=== PATIENT | female | born 1940 | race Caucasian/White ===

== ENCOUNTER 2023-05-11 17:07 | Observation (INO) | payer OTHER, SELFPAY ==
[2023-05-11] VITALS (11 sets, daily range): BP systolic 127–157; BP diastolic 50–109; PULSE 67–88; RESP 17–34; TEMP 36.6; O2SAT 94–100
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
--- NOTE | 2023-05-11 17:35 | ECG_ITS ---
Measurements Intervals [place] Rate: 85 P: 56 OK: 161 QRS: 47 QRSD: 101 T: 102 QT: 397 QTc: 473 Interpretive Statements SINUS RHYTHM BORDERLINE R WAVE PROGRESSION, ANTERIOR LEADS ST-T WAVE ABNORMALITY IN ANTEROLAT/HIGH LAT LEADS- CONSIDER ISCHEMIA ABNORMAL ECG NO PREVIOUS ECG AVAILABLE FOR COMPARISON Electronically Signed On 05-11-2023 18:44:39 [employer] by Chuck Moon D.O.
[2023-05-11 18:08] LABS: Glucose Point of Care 36 mg/dl (65-105)
--- NOTE | 2023-05-11 18:09 | PC.NURSE ---
c/o return of blurred vision. FSBS 36. 1 amp D50 given IVP.
[2023-05-11 18:10] LABS: Basophils Percent Auto 0.2 % (0.2-1.2); Eosinophils Percent Auto 0.4 % (0-4.4); Hematocrit 32.3 % (37.0-47.0); Hemoglobin 9.9 g/dL (12.0-15.0); Immature Granulocyte Absolute 0.08 K/mm3 (0.00-0.031); Immature Granulocyte Percent A 0.8 % (0-0.5); Lymphocytes Absolute Auto 1.62 K/mm3 (0.9-3.2); Lymphocytes Percent Auto 16.1 % (18.3-44.2); Mean Corpuscular HGB Conc 30.7 g/dl (32-36); Mean Corpuscular Hemoglobin 27.1 pg (26-34); Mean Corpuscular Volume 88.5 fl (80-100); Mean Platelet Volume 10.8 fl (7.4-10.4); Monocytes Absolute Auto 0.9 K/mm3 (0.1-0.6); Monocytes Percent Auto 8.9 % (2.6-8.5); Neutrophils Absolute Auto 7.4 K/mm3 (1.3-6.7); Neutrophils Percent Auto 73.6 % (45.5-73.1); Platelet Count Result 314 k/mm3 (150-375); Red Blood Count 3.65 M/mm3 (4.2-5.4); Red Cell Distribution Width 14.9 % (11.5-14.5); White Blood Count 10.1 K/mm3 (4.5-10.0)
[2023-05-11] MEDS: DEXTROSE 50% 25 GM/50 ML SYRINGE (18:17)
[2023-05-11 18:20] LABS: Ethanol < 10 mg/dL (<10)
[2023-05-11 18:28] LABS: Alanine Aminotransferase 26 U/L (6-35); Albumin Level 3.6 g/dL (3.5-5.1); Alkaline Phosphatase 85 U/L (38-126); Anion Gap 8 mmol/L (8-16); Aspartate Amino Transferase 42 U/L (14-36); Bilirubin,Total 0.5 mg/dL (0.2-1.3); Blood Urea Nitrogen 19 mg/dL (7-17); Calcium 8.7 mg/dL (8.4-10.2); Carbon Dioxide 23 mmol/L (22-30); Chloride 107 mmol/L (98-107); Estimated CRCL calculation 40 ml/min; Estimated Glomerular Filt Rate > 60; Glucose 39 mg/dL (65-110); Potassium 3.8 mmol/L (3.4-5.0); Sodium 138 mmol/L (137-145)
[2023-05-11 18:32] LABS: Troponin I 0.019 ng/mL (0.000-0.034)
[2023-05-11 18:39] LABS: Appearance Urine Clear (Clear); Bilirubin Urine Negative (Negative); Blood Urine Negative (Negative); Color Urine Yellow (Yellow); Glucose Urine UA 1+ mg/dL (Negative); Ketones Urine Trace mg/dL (Negative); Leukocyte Esterase Ur Negative LEU/UL (Negative); Nitrate Urine Negative (Negative); Protein Urine Negative (Negative); Specific Grav Ur 1.018 (1.001-1.035); Urobilinogen Urine 0.2 mg/dL (<2.0)
[2023-05-11 18:39] LABS: INR 0.9; Prothrombin Time 12.6 Seconds (11.1-14.7)
[2023-05-11 18:40] LABS: Partial Thromboplastin Time 24.3 SECONDS (22.3-36.8)
[2023-05-11 18:42] LABS: Add Urine Microscopic? YES
[2023-05-11 18:54] LABS: Amphetamine Screen Urine Negative (Negative); Barbiturate Screen Urine Negative (Negative); Benzodiazepines Screen Urine Negative (Negative); Cannabinoid Screen Urine Negative (Negative); Cocaine Screen Urine Negative (Negative); Methadone Screen Urine Negative (Negative); Opiate Screen Urine Negative (Negative); Phencyclidine Screen Urine Negative (Negative)
[2023-05-11 18:58] LABS: Glucose Point of Care 130 mg/dl (65-105)
[2023-05-11] MEDS: OCTREOTIDE ACETATE 50 MCG/ML VIAL SUB-Q ×2 (19:12→22:14)
[2023-05-11 20:55] LABS: Glucose Point of Care 38 mg/dl (65-105)
--- NOTE | 2023-05-11 21:00 | ECG_ITS ---
Measurements Intervals [place] Rate: 70 P: 58 [place]: 177 QRS: 44 QRSD: 102 T: 94 QT: 438 QTc: 473 Interpretive Statements SINUS RHYTHM BORDERLINE R WAVE PROGRESSION, ANTERIOR LEADS ST-T WAVE ABNORMALITY IN HIGH LATERAL LEADS- CONSIDER ISCHEMIA ABNORMAL ECG COMPARED TO ECG 05/11/2023 17:41:07 NO SIGNIFICANT CHANGES Electronically Signed On 05-12-2023 6:45:03 MORTGAGE CLOSER by Chuck Moon D.O.
[2023-05-11] MEDS: DEXTROSE 50% 25 GM/50 ML SYRINGE IV PUSH (21:10)
[2023-05-11 22:15] LABS: Glucose Point of Care 181 mg/dl (65-105)
[2023-05-12] VITALS (9 sets, daily range): BP systolic 127–148; BP diastolic 47–65; PULSE 61–97; RESP 16–24; TEMP 36.3–36.8; O2SAT 95–97; BMI 19.5; BMI 20.3
[2023-05-12 00:05] LABS: Glucose Point of Care 186 mg/dl (65-105)
--- NOTE | 2023-05-12 02:38 | ADMGEN ---
This patient, Tessy Bcekman, was admitted to IMU Room 204-01. Patient/family oriented to hospital policies and general routines including ID bracelet, bed and alarms, visiting hours, pain management, procedures, bathroom and other care routines, personal items, smoking policy, room service/diet, and visiting hours. Information on how to activate the Rapid Response Team has been discussed. Patient/Family are encouraged to report perceived risks to care and to ask questions if they do not understand what they are told or what they should do.
[2023-05-12 03:05] LABS: Troponin I 0.036 ng/mL (0.000-0.034)
[2023-05-12] MEDS: ASPIRIN 81 MG CHEWABLE TABLET 324 MG PO (05:26)
[2023-05-12 06:11] LABS: Glucose Point of Care 169 mg/dl (65-105)
[2023-05-12 08:35] LABS: Glucose Point of Care 82 mg/dl (65-105)
[2023-05-12 12:37] LABS: Glucose Point of Care 190 mg/dl (65-105)
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
[2023-05-12 15:00] LABS: Troponin I 0.024 ng/mL (0.000-0.034)
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
== END 2023-05-12 16:40 | disposition home or self-care (01) ==
LOC: ANHED 19:07 → ANHIMU 05-12 01:25
PROVIDERS: Internal Medicine; Admitting Provider Internal Medicine; Emergency Provider Student in an Organized Health Care Education/Training Program; PCP Family Medicine; Visit Provider Internal Medicine
DX: E16.2 Hypoglycemia, unspecified (principal); V89.2XXA Person injured in unspecified motor-vehicle accident, traffic, initial encounter; R79.89 Other specified abnormal findings of blood chemistry; I65.23 Occlusion and stenosis of bilateral carotid arteries; J81.1 Chronic pulmonary edema; I11.0 Hypertensive heart disease with heart failure; R91.8 Other nonspecific abnormal finding of lung field; I25.10 Atherosclerotic heart disease of native coronary artery without angina pectoris; D50.0 Iron deficiency anemia secondary to blood loss (chronic); E03.9 Hypothyroidism, unspecified; E78.5 Hyperlipidemia, unspecified; E63.8 Other specified nutritional deficiencies; Z86.16 Personal history of COVID-19; I25.2 Old myocardial infarction; Z79.82 Long term (current) use of aspirin; Z79.02 Long term (current) use of antithrombotics/antiplatelets; Z79.4 Long term (current) use of insulin; Z79.84 Long term (current) use of oral hypoglycemic drugs; Z79.899 Other long term (current) drug therapy
CPT/HCPCS: 36415; 70496; 70498; 71046; 71260; 74177; 80053; 80307; 81001; 82948; 84484; 85025; 85610; 85730; 93005; 96372; 96374; 96376; 99285; A9270; G0378; J2354; Q9967

== ENCOUNTER → 2024-11-11 12:58 | Outpatient (CLI) | payer OTHER, SELFPAY ==
--- NOTE | ~2024-11-11 | XR_ITS ---
HISTORY: M54.6 - Pain in thoracic spine/fall 8 days ago COMPARISON: 05/11/2023 TECHNIQUE: Multiple views of the thoracic spine were performed. FINDINGS: Compression of the superior endplate of T12 is identified for detection of acute is limited on plain film evaluation. This vertebral body was not compressed on 05/11/2023. Diffuse bony demineralization. Moderate kyphosis, demonstrating progression since previous examination dated 05/11/2023 IMPRESSION: Diffuse bony demineralization with compression of the superior endplate of T12, an interval change fr om 05/11/2023 examination for which cross-sectional imaging (noncontrast enhanced CT or MRI) is recomm ended for further evaluation. Reviewed, dictated and finalized at location A. IMPRESSION: Diffuse bony demineralization with compression of the superior endplate of T12, an interval change from 05/11/2023 examination for which cross-sectional imagin g (noncontrast enhanced CT or MRI) is recommended for further evaluation.
--- NOTE | ~2024-11-11 | XR_ITS ---
HISTORY: M54.50 - Low back pain, unspecified/fall 8 days ago COMPARISON: 05/11/2023 (CT examination of the abdomen and pelvis) TECHNIQUE: 4 view lumbar spine. FINDINGS: There are 5 non-rib bearing lumbar vertebral bodies. Diffuse bony demineralization is identified. 9 mm of anterolisthesis of L4 onto L5 is identified. This is an interval change from 05/11/2023 when this measured only 4 mm. Remaining vertebral bodies otherwise are normally aligned. Compression of the superior endplate of L4 is identified, an interval change from 05/11/2023. Significant facet arthropathy is also detected, within the entirety of the lumbar spine. Paraspinal soft tissues demonstrate densely calcified atherosclerotic disease within the abdominal ao rta as well as multiple dependent layering stones within the gallbladder. IMPRESSION: Unremarkable lumbar spine series. Compression of the superior endplate of L4, an interval change from 05/11/2023. Please correlate this finding with the patient's point of maximal tenderness to further evaluate its acuity. If patient is clinically able, cross-sectional imaging (CT or MRI) is recommended for further evaluat ion. Reviewed, dictated and finalized at location A. IMPRESSION: Unremarkable lumbar spine series. Compression of the superior endplate of L4, an interval change from 05/11/2023. Please correlate this finding with the patient's point of maximal tenderness to further evaluate its acuity. If patient is clinically able, cross-sectional imaging (CT or MRI) is recommend ed for further evaluation.
--- OUTSIDE RECORDS SUMMARY | 2024-11-11 13:04 | XMS_ITS | Encounter Summary ---
Author Organization [facility] Address [address] [place] [address] Care Team Providers Care Forest Science Professor Name Role Phone Roxane Meyers MD Primary Care Provider [phone] Daphne Xavier PharmD Unavailable [phone] Nathan Diaz MD Primary Care Provider [phone] Encounter Details Date Type Department Care Team (Late st Contact Info) Description 02/25/2022 Prep for Procedure [facility] [address] [place] [address] Tai Ram DO [address] [place] [address] Social History Tobacco Use Types Packs/Day Years Used Date Smoking Tobacco: Never Smokeless Tobacco: Never Alcohol Use Standard Drinks/Week Comments Yes 0 (1 standard drink = 0.6 oz pur e alcohol) very rarely. AUDIT-C Answer Date Recorded Frequency of Alcohol Consumption Not on file 08/21/2020 Q2: How many drinks containi ng alcohol do you have on a typical day when you are drinking? 1 or 2 08/21/2020 Frequency of Binge Drinking Not on file 08/2020 PHQ-2 Answer Date Recorded PHQ-2 Score - If the patient scores above 3, please move on to questions 3-9 0 08/25/2021 Comments No Sex and Gender Information Value Date Recorded Sex Assigned at Not on file Legal Sex Female 6:32 PM CDT Gender Identity Not on file Sexual Orientation Not on file COVID-19 Exposure Response Date Recorded In the last 10 days, have yo u been in contact with someone who was confirmed or suspected to have Coronavirus/COVID-19? No / Unsure 02/27/2022 9:51 AM WAREHOUSE HANDLER documented as of this encounter Functional Status * Calculated C-SSRS Risk Score (Lifetime/Recent) Answer Date of Assessment Author Status No Risk Indicated 02/27/2022 9:47 AM WAREHOUSE HANDLER Louisa Yanez RN Active * Ward Suicide Severity Rating Scale (Screener/Recent Self-Report) Question Answer Date of Assessment Author Status 1. Wish to be (Past 1 Month) No 02/27/2022 9:47 AM WAREHOUSE HANDLER Louisa Yanez RN Active 2. Non-Specific Active Suicidal Thoughts (Past 1 Month) No 02/27/2022 9:47 AM WAREHOUSE HANDLER Louisa Yanez RN Active 6. Suicidal Behavior (Lifetime) No 02/27/2022 9:47 AM WAREHOUSE HANDLER Louisa Yanez RN Active documented as of this encounter Plan of Treatment Not on file documented as of this encounter Results * XR CHEST PA+LAT (02/26/2022 9:38 AM WAREHOUSE HANDLER) Anatomical Region Laterality Modality Chest Radiographic Mendy ging 02/26/2022 9:55 AM WAREHOUSE HANDLER Impressions 02/26/2022 9:58 AM WAREHOUSE HANDLER IMPRESSION: 1. No evidence of acute cardiopulmonary disease. 2. No evidence of pleural effusion or pneumothorax. No CHF. Mild COPD with scattered interstitial fibrosis. 3. Atherosclerotic aorta. Mild cardiomegaly. Degenerative change in thoracic spine. Osteopenia. Kyphosis.. 4. Stable appearance to numerous gallbladder calculi. Also noted on CT of 02/01/2022. Ordered By: TAI RAM Interpreted By: Mago Haq, 02/26/2022 9:55 AM Narrative 02/26/2022 9:58 AM WAREHOUSE HANDLER IMAGING STUDIES: XR CHEST PA+LAT DATE: 02/26/2022 9:30 AM CLINICAL HISTORY: pre-op testing, HTN . COMPARISON: 01/07/2018 Procedure Note Yogesh Haq MD - 02/26/2022 IMAGING STUDIES: XR CHEST PA+LAT DATE: 02/26/2022 9:30 AM CLINICAL HISTORY: pre-op testing, HTN . COMPARISON: 01/07/2018 IMPRESSION: 1. No evidence of acute cardiopulmonary disease. 2. No evidence of pleural effusion or pneumothorax. No CHF. Mild COPDwith scattered interstitial fibrosis. 3. Atherosclerotic aorta. Mild cardiomegaly. Degenerative change inthoracic spine. Osteopenia. Kyphosis.. 4. Stable appearance to numerous gallbladder calculi. Also noted on CT of02/01/2022. Ordered By: TAI RAM Interpreted By: Mago Haq, 02/26/2022 9:55 AM us Tai Ram DO GENERAL IMAGING Final Result * (ABNORMAL) CBC W/DIFF AUTOMATED (02/26/2022 9:19 AM WAREHOUSE HANDLER) WBC 8.5 4.4 - 11.0 x10'3/uL 02/26/2022 10:08 AM [facility] RBC 4.29(L) 4.50 - 5.10 x10'6/uL 02/26/2022 10:08 AM [facility] HGB 12.5 12.3 - 15.3 G/DL 02/26/2022 10:08 AM [facility] HCT 38.9 35.9 - 44.6 % 02/26/2022 10:08 AM [facility] MCV 90.7 80.0 - 96.0 FL 02/26/2022 10:08 AM [facility] MCH 29.1 25.3 - 30.9 PG 02/26/2022 10:08 AM [facility] MCHC 32.1 31.0 - 34.1 G/DL 02/26/2022 10:08 AM [facility] RDW 14.5 12.4 - 15.1 % 02/26/2022 10:08 AM [facility] PLT 348 151 - 353 x10'3/uL 02/26/2022 10:08 AM [facility] MPV 10.8 9.6 - 12.0 FL 02/26/2022 10:08 AM [facility] RBC MORPHOLOGY NORMAL 02/26/2022 10:08 AM [facility] PLT MORPH. NORMAL 02/26/2022 10:08 AM [facility] WBC MORPHOLOGY NORMAL 02/26/2022 10:08 AM [facility] LYMPHOCYTES % 26.3 15.8 - 45.0 % 02/26/2022 10:08 AM [facility] NEUTROPHILS % 61.1 42.1 - 71.9 % 02/26/2022 10:08 AM [facility] MONOCYTES % 9.3 5.7 - 12.5 % 02/26/2022 10:08 AM [facility] EOSINOPHILS 2.3 0.0 - 5.6 % 02/26/2022 10:08 AM [facility] BASOPHILS 0.4 0.0 - 1.3 % 02/26/2022 10:08 AM [facility] ABS. NEUTROPHILS 5.22 1.40 - 6.00 x10'3/uL 02/26/2022 10:08 AM [facility] IMMATURE GRANS % 0.6(H) 0.0 - 0.5 % 02/26/2022 10:08 AM [facility] ABS. LYMPHOCYTES 2.24 0.80 - 4.70 x10'3/uL 02/26/2022 10:08 AM [facility] 02/26/2022 9:19 AM WAREHOUSE HANDLER Tai Ram DO LABORATORY Final Result [facility] [address] [place] [address], [place] [phone] documented in this encounter Visit Diagnoses Diagnosis Pre-op testing- Primary Preoperative examination, unspecified Hypertension, benign Essential hypertension, benign Pre-op testing Preoperative examination, unspecified Hypertension, benign Essential hypertension, benign documented in this encounter Additional Health Concerns Assessment Noted Time PHQ-9 Depression Total Score: 2 08/26/19 22 10:21 AM CDT documented as of this encounter Care Teams Forest Science Professor Relationship Specialty Start Date End Date Roxane Meyers MD PCP - General INTERNAL MEDICINE 01/26/18 07/05/22 Nathna Diaz MD [address] [place] [address] [address] [place] [address] PCP - General FAMILY PRACTICE 07/06/22 Daphne Xavier, PharmD [address] [place] [address] Telegraph Repeater Installer (Ambulatory) Pharmacist 11/18/2106/18 documented as of this encounter
--- OUTSIDE RECORDS SUMMARY | 2024-11-11 13:04 | XMS_ITS | Continuity of Care Document ---
Author Organization [facility] Address [address] [place] [address] Phone Care Team Providers Care Sisal Operator Name Role Phone Matt RHOADES, John Unavailable Unavailable Advance Directives Directive Yes / No Effective Date File Name No Information Encounters Encounter Description Practice Location Reason(s) For Visit Diagnoses Date Provider Providers Copied on Encounter [facility] , [address], [place], [id number], [place] tel:[phone] [facility] No Information Matt Lopez. [address], [address], [place], [id number], [place]. tel:[phone] Family History Family Member Type Diagnosis Age At Onset No Information Payers Payer name Insurance type Covered republican ID Authoriza tion(s) No Information Social History Type Description Quantity Date Captured Comments Sex Female Smoking Status No Information Chief Complaint And Reason For Visit No Information Reason For Referral Reason For Referral No Information History Of Present Illness Encounter Date Complaint History Of Prese nt Illness No Information Functional Status Date Functional Assessmen t No Information Instructions Date Instruction Additional Infor mation No Information Assessments Type Assessment Date No Information Patient Care Teams Name Effective Dates (start - stop) Status Members No Information
--- OUTSIDE RECORDS SUMMARY | 2024-11-11 13:04 | XMS_ITS | Continuity of Care Document ---
Author Organization [facility] Address [address] [place] [address] Phone Care Team Providers Care Art Handler Name Role Phone Eliel Jiang Unavailable Unavailable Procedures Procedure Date Post-op Follow-up Visit Post-op Follow-up Visit Laser Surgery Of Eye Office/outpatient Visit, Est Visual Field Examination(s) Eye Exam & Treatment Refraction Office/outpatient Visit, Est Office/outpatient Visit, Est Post-op Follow-up Visit Laser Surgery Of Eye Office/outpatient Visit, Est Fundus Photography W/ Report Visual Field Examination(s) Office/outpatient Visit, Est Office/outpatient Visit, Est Office/outpatient Visit, Est Optic Nerve Head Eval Visual Field Examination-Professional Ju -2006 Visual Field Examination(s) Office/outpatient Visit, Est Advance Directives Directive Yes / No Effective Date File Name No Information Encounters Encounter Description Practice Location Reason(s) For Visit Diagnoses Date Provider Providers Copied on Encounter [facility], [address], [place], [place], [id number], [place] tel:[phone] [facility] No Information 1 0 Apolinar Julian. [address] [facility] [address] , [address], [place], [place], [facility], [place]. tel:[phone] [facility], [address] [place] [address] [address], [place], [place], [id number], [place] tel:[phone] [facility] [place] No Information Oct-1 8-201 0 Apolinar Edkeira. [address] [facility] , [address], [place], [place], [facility], [place]. tel:[phone] [facility], [address] [place] [address] [address], [place], [place], [id number], [place] tel:[phone] [facility] No Information Oct-1 2-201 0 Apolinar Julian. [address] [facility] , [address], [place], [place], [facility], [place]. tel:[phone] Office/outpat ient Visit, Est [facility], [address] [place] [address] [address], [place], [place], [id number], [place] tel:[phone] [facility] No Information Sep-2 7-201 0 Apolinar Edkeira. [address] [facility] [address], [address], [place], [place], [facility], [place]. tel:[phone] [facility], [address] [place] [address] [address], [place], [place], [id number], [place] tel:[phone] [facility] No Information Sep-0 3-201 0 Apolinar Julian. [address] [facility] [address], [address], [place], [place], [facility], [place]. tel:[phone] Referring Provider: Eliel Gray, [facility] [address], [place], [place], [facility]. tel:[phone] [facility], [address] [place] [address] [address], [place], [place], [id number], [place] tel:[phone] [facility] No Information Apr-2 1-201 0 Apolinar Julian. [address] [facility] , [address], [place], [facility], [place]. tel:[phone] Office/outpat ient Visit, [facility], [address], [place], [place], [id number], [place] tel:[phone] [facility] No Information Dec-1 6-200 9 Apolinar Julian. [address] [place], [place] [address]ate Center , [address], [place], [place], [facility], [place]. tel:[phone] Office/outpat ient Visit, [facility], [address] [place] [address] [address], [place], [place], [id number], [place] tel:[phone] [facility] No Information Aug-0 3-200 9 Apolinar Julian. [address] [place], [place] [address]ate Center , [address], [place], [place], [facility], [place]. tel:[phone] [facility], [address], [place], [place], [id number], [place] tel:[phone] [facility] [place] No Information Mar-2 3-200 9 Apolinar Julian. [facility] , [address], [place], [facility], [place]. tel:[phone] [facility], [address] [place] [address] [address], [place], [place], [id number], [place] tel:[phone] [facility] No Information Mar-1 3-200 9 Apolinar Julian. [address] [place], [place] [address]ate Center , [address], [place], [place], [facility], [place]. tel:[phone] Referring Provider: Eliel Gray, [address] [place], [place] [address]ate Center [address], [place], [place], [facility]. tel:[phone] Office/outpat ient Visit, [facility], [address] [place] [address] [address], [place], [place], [id number], [place] tel:[phone] [facility] No Information 4[address] Apolinar Julian. [facility] , [address], [place], [facility], . tel:[phone] Referring Provider: Eliel Gray, Alyssa [facility] [address], [place], [facility]. tel:[phone] [facility], [address] [place] [address] [address], [place], [place], [id number], [place] tel:[phone] [facility] No Information 9 Apolinar Julian. [address] [place], [place] [address]ate Center , [address], [place], [facility], [place]. tel:[phone] Referring Provider: Eliel Gray, [address] [place], [place] [address]ate Center [address], [place], [facility]. tel:[phone] Office/outpat ient Visit, [facility], [address] [place] [address] [address], [place], [place], [id number], [place] tel:[phone] [facility] No Information 2200 8 Apolinar Julian. [address] [place], [place] [address]ate Center , [address], [place], [facility], . tel:[phone] Office/outpat ient Visit, [facility], [address] [place] [address] [address], [place], [place], [id number], [place] tel:[phone] [facility] [place] No Information 3-200 8 Apolinar Julian. [address] [place], [place] [address], [place], [facility], . tel:[phone] Office/outpat ient Visit, [facility], [address] [place] [address] [address], [place], [place], [id number], [place] tel:[phone] SEC [facility] No Information 8200 7 Apolinar Julian. [address] [place], [place] [address]ate [address], [address], [place], [facility], . tel:[phone] [facility], [address] [place] [address] [address], [place], [place], [id number], tel:[phone] [facility] No Information 200 7 Apolinar Julian. [facility] [address], [place], [facility], . tel:[phone] Referring Provider: Eliel Gray, [facility] [place] [address], [place], [facility]. tel:[phone] [facility], [address] [place] [address] [address], [place], [place], [id number], tel:[phone] [facility] No Information 200 7 Apolinar Julian. [address] [place] [address] [address], [place], [facility], [place]. tel:[phone] Referring Provider: Alyssa Cage [facility] [address], [place], [facility]. tel:[phone] Office/outpat ient Visit, [facility], [address] [place] [address] [address], [place], [place], [id number], tel:[phone] [facility] No Information 200 7 Apolinar Julian. [facility] [address], [address], [place], [facility], . tel:[phone] Family History Family Member Type Diagnosis Age At Onset No Information Payers Payer name Insurance type Covered green party ID Authoriza tion(s) No Information Social History [...]
--- OUTSIDE RECORDS SUMMARY | 2024-11-11 13:04 | XMS_ITS | Clinical Summary ---
Author Organization [facility] Address [address] [place] [id number] Care Team Providers Care Alcoholic Counselor Name Role Phone Nathan Diaz MD Primary Care Provider [phone] Allergies Active Allergy Reactions Criticality Noted Date Comments Cefaclor Hives,Rash,Itching High 08/01/2018 Cephalosporins Hives,Rash,Itching High 03/01/2017 Medications levothyroxine (SYNTHROID) 75 MCG tabletIndications:T hyroid [The details of the medication are not available because there are pending changes by a home health clinician.] 90 tablet 1 022 Active Additional Information Patient taking differently: 75 mcg Oral Every morning, Indications: Thyroid, Reported on 02/14/2024 atorvastatin (LIPITOR) 80 MG tabletIndications:H LD Take 1 tablet (80 mg total) by mouth nightly at bedtime. 30 tablet 023 Active nitroglycerin (NITROSTAT) 0.4 MG SL tabletIndications:C P Place 1 tablet (0.4 mg total) under the tongue every 5 (five) minutes as needed for Chest Pain. 30 tablet 023 Active metFORMIN (GLUCOPHAGE) 500 MG tabletIndications:D iabetes Mellitus Take 1 tablet (500 mg total) by mouth daily with breakfast. Indications: Diabetes 024 Active SEMGLEE, YFGN, 100 UNIT/ML Solution Pen-injectorIndicat ions:DM [The details of the medication are not available because there are pending changes by a home health clinician.] 3 mL 024 Active Additional Information Patient taking differently: 20 UnitsSubcutaneous Every evening, Indications: DM, Reported on 02/14/2024 potassium chloride CR (KLOR-CON M) 20 MEQ tabletIndications:s upplement Take 0.5 tablets (10 mEq total) by mouth daily. Indications: supplement 90 tablet Active vitamin D3, cholecalciferol, (VITAMIN D3) 25 mcg capsuleIndications: Vitamin D Deficiency Take 1 capsule (25 mcg total) by mouth daily. Indications: Vitamin D Deficiency Active clopidogrel (PLAVIX) 75 MG tabletIndications:b lood thinner Take 1 tablet (75 mg total) by mouth daily. Indications: blood thinner 90 tablet 1 Active HYDROcodone-acetami nophen (NORCO) 5-325 MG tabletIndications:A cute Pain < 7 Day Supply Take 1 tablet by mouth every 6 (six) hours as needed. Indications: Acute Pain < 7 Day Supply 20 tablet Active Additional Information Patient not taking.Reported on 02/14/2024 ondansetron (ZOFRAN) 4 MG tablet Take 1 tablet (4 mg total) by mouth every 8 (eight) hours as needed for Nausea. 20 tablet Active traMADol (ULTRAM) 50 MG tabletIndications:A cute Pain < 7 Day Supply Take 1 tablet (50 mg total) by mouth every 6 (six) hours as needed for Pain. Indications: Acute Pain < 7 Day Supply 10 tablet Active Additional Information Patient not taking.Reported on 02/14/2024 memantine (NAMENDA) 5 MG tabletIndications:M jayesh Impairment Take 1 tablet (5 mg total) by mouth nightly at bedtime. Indications: Memory Impairment Active acetaminophen CR (TYLENOL 8 HOUR) 650 MG Tab CR 8 hr tabletIndications:A rthritis, knee Take 1 tablet (650 mg total) by mouth every evening. Indications: Arthritis, knee Active Iron, Ferrous Sulfate, 325 (65 Fe) MG TabIndications:Iron Deficiency Take 1 tablet by mouth daily. Indications: Iron Deficiency Active FREESTYLE LITE test strip CHECK BLOOD SUGAR 2X/DAY Active carvedilol (COREG) 3.125 MG tabletIndications:C oronary Arteriosclerosis Take 1 tablet (3.125 mg total) by mouth 2 (two) times daily. Indications: Thickening and Hardening of Heart Arteries CALL FOR AN APPOINTMENT 60 tablet Active furosemide (LASIX) 20 MG tablet Take 1 tablet (20 mg total) by mouth daily. CALL TO MAKE AN APPOINTMENT 30 tablet Active aspirin EC ([facility] ASPIRIN LOW DOSE) 81 MG tablet Take 1 tablet (81 mg total) by mouth daily. CALL TO MAKE AN APPOINTMENT 30 tablet Active Active Problems Problem Noted Date Diagnosed Date Multiple falls 01/25/2024 Proximal humerus fracture 01/25/2024 Assessment & Plan (02/14/2024 5:58 PM CDT): Recommendation at this time is to gradually increase activities as tolerated. We'll see her back as needed. Assessment & Plan (01/25/2024 9:36 PM CDT): At this point in time, I would have her continue with activities as tolerated with her sling. We'll see her back in three weeks for repeat evaluation. We'll get an x-ray of her shoulder and elbow. Syncope 01/02/2024 Closed displaced fracture of lateral condyle of right humerus with routine healing, subsequent encounter 11/15/2023 Assessment & Plan (11/15/2023 12:21 PM CDT): Recommendation at this time, she doesn't really want formal physical therapy. States she has transportation issues. She's not having any numbness or tingling. We'll just continue with working on her range of motion on her own. We'll see her back as needed. Fall, initial encounter 10/09/2023 Closed displaced fracture of medial condyle of right humerus, initial encounter 10/07/2023 Assessment & Plan (10/07/2023 7:12 AM CDT): Recommendation at this time, we're going to get her set up for an x-ray next week. We'll see her back in three weeks with another x-ray. As long as the x-ray next week doesn't show any significant change in position or alignment, we'll continue with conservative treatment. Hip fracture, right ([facility]) 05/21/2023 Physical deconditioning 02/18/2023 STEMI (ST elevation myocardi al infarction) ([facility]) 02/10/2023 Closed fracture of olecranon process of right ul na 03/10/2022 Closed supracondylar fracture of humerus 022 Ulnar nerve entrapment at elbow 02/24/2022 Fracture of distal end of humerus 02/18/2022 Mild nonproliferative diabet ic retinopathy of both eyes without macular edema associated with type 2 diabetes mellitus ([facility]) 12/19/2020 GERD (gastroesophageal reflux disease) 0 Type 2 diabetes mellitus wit h both eyes affected by mild nonproliferative retinopathy without macular edema, with long-term current use of insulin ([facility]) 08/01/2018 Alopecia of scalp 02/28/2018 Hypothyroidism 11/24/2017 Knee pain, bilateral 08/30/2017 Claudication 05/31/2017 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 03/01/2017 Overview (02/28/2018): Annotation - [id number]: R ear hearing loss after Measles Hyperlipidemia 03/01/2017 Hypertension, benign 03/01/2017 Pain of hand 03/01/2017 Resolved Problems Problem Noted Date Diagnosed Date Resolved Date Care Management 12/09/2021 06/19/2022 Osteoporosis, postmenopausal 08/30/2017 02/28/2018 Encounters Date Type Department Care Team Description 08/15/2024 7:40 AM CDT - 08/15/2024 11:59 PM CDT Hospital Encounter [facility] [address] [place] [address] Nathan Diaz MD Discharge Disposition: Home or Self Care (Routine Discharge) 08/15/2024 Orders Only [facility] [address] [place] [address] Kamila Prieto APNP 08/15/2024 Travel from Last 3 Months Immunizations Immunization Administration Dates Next Due Fluad influenza vaccine, Ollie drivalent (aIIV4), Inactivated, adjuvanted, preservative free, 0.5 mL,IM use 12/29/2019 Fluzone (IIV3, Trivalent, 0. 5 ML Prefilled Syringe) 01/02/2024(Deferred: Patient/family declined - does not want at this time) Fluzone Adult - >Age 3 (Pref illed Syringe) 01/18/2020 Fluzone High Dose - >Age 65 (Prefilled Syringe) 01/20/2022,01/31/2019,01/31/2019,2017,02/07/2018,01/22/2017,01/11/2017,0 04/21/2016 Influenza (Generic) 01/18/2020,01/30/2013 Influenza Adult (Generic) 02/06/2021,07/2017,02/07/2018,2016,01/11/2017,04/21/2016 MODERNA COVID-19 (12+) MRNA, LNP-S, PF, 100 MCG/ 0.5 ML DOSE 07/26/2020,07/26/2020,06/28/2020,2020 Pneumococcal (Pneumovax 23) 02/19/2020, 4 Pneumococcal (Prevnar 13) 04/25/2018 Pneumovax 11/24/2013 Shingrix 08/26/2020 Td (Tenivac) preservative free 08/30/2018 Td, Adsorbed, Preservative F ree, Adult Use, Lf Unspecified 08/30/2018 Zoster (Zostavax) [address] Unt/0.65Ml 05/09/2013, Family History Medical History Relation Comments COPD Father Diabetes Mother Breast Cancer Neg Hx Relation Status Comments Father Mother Social History Tobacco Use Types Packs/Day Years Used Date Smoking Tobacco: Never Smokeless Tobacco: Never Tobacco Cessation:Counseling Given: No Comments:na Alcohol Use Standard Drinks/Week Comments Yes 0 (1 standard drink = 0.6 oz pur e alcohol) very rarely. OASIS D0700: Social Isolation Answer Da te Recorded Frequency of experiencing loneliness or isolatio n Never 02/22/2024 OASIS A1250: Transportation Answer Date Recorded Lack of Transportation (Medical) No 02/22/2024 Lack of Transportation (Non-Medical) No 02/22/2024 Patient Unable or Declines to Respond No 02/22/2024 OASIS B1300: Health Literacy Answer Kenny e Recorded Frequency of needing help to read materials from doctor or pharmacy Sometimes 02/22/2024 [facility] Utilities Answer Date Recorded In the past 12 months has th e Liz[place], gas, oil, or water [place] threatened to shut off services in your home? No 01/02/2024 Humiliation, Afraid, Rape, and Kick questionnair e Answer Date Recorded Within the last year, have y ou been afraid of your partner or ex-partner? No 01/02/2024 Within the last year, have y ou been humiliated or emotionally abused in other ways by your partner or ex-partner? No Within the last year, have y ou been kicked, hit, slapped, or otherwise physically hurt by your partner or ex-partner? No 01/02/2024 Within the last year, have y ou been raped or forced to have any kind of sexual activity by your partner or ex-partner? No 01/02/2024 AUDIT-C Answer Date Recorded Q1: How often do you have a drink containing alc ohol? Monthly or less 02/16/2023 Q2: How many drinks containi ng alcohol do you have on a typical day when you are drinking? 1 or 2 02/16/2023 Frequency of Binge Drinking Not on file 01/19 Overall Financial Resource Strain (CARDIA) Answe r Date Recorded How hard is it for you to pa y for the very basics like food, housing, medical care, and heating? Not very hard 01/02/2024 PHQ-2 Answer Date Recorded Patient Health Questionnaire-2 Score 0 10/06/2023 [facility] - Occupational Stress Questionnaire Answer Date Recorded Do you feel stress - tense, restless, nervous, or anxious, or unable to sleep at night because your mind is troubled all the time - these days? Rather much 02/16/2023 Hunger Vital Sign Answer Date Recorded Within the past 12 months, y ou worried that your food would run out before you got the money to buy more. Never true 01/02/20 24 Within the past 12 months, t he food you bought just didn't last and you didn't have money to get more. Never true 01/02/2024 PRAPARE - Transportation Answer Date Re corded In the past 12 months, has l ack of transportation kept you from medical appointments or from getting medications? No 12/18 In the past 12 months, has l ack of transportation kept you from meetings, work, or from getting things needed for daily living? No 01/02/2024 Housing Stability Vital Sign Answer Kenny e Recorded In the last 12 months, was t here a time when you were not able to pay the mortgage or rent on time? No 05/21/2023 In the last 12 months, how many places have you lived? 2 05/21/2023 In the last 12 months, was t here a time when you did not have a steady place to sleep or slept in a group home (including now)? No 05/21/2023 Housing Stability Vital Sign Answer Kenny e Recorded In the last 12 months, was t here a time when you were not able to pay the mortgage or rent on time? No 01/02/2024 In the past 12 months, how m any times have you moved where you were living? 1 01/02/2024 At any time in the past 12 m [facility], were you homeless or living in a group home (including now)? No 01/02/2024 Comments No Sex and Gender Information Value Date Recorded Sex Assigned at Not on file Legal Sex Female 6:32 PM CDT Gender Identity Not on file Sexual Orientation Not on file Last Filed Vital Signs Vital Sign Reading Time Taken Comments Blood Pressure 132/60 02/22/2024 9:55 AM [employer] Pulse 70 02/22/2024 9:55 AM [employer] Temperature 36.4 C (97.6 F) 02/14/2024 2:32 PM CDT Respiratory Rate 18 02/22/2024 9:55 AM [employer] Oxygen Saturation 94% 02/22/2024 9:55 AM [employer] Inhaled Oxygen Concentration - - Weight 43.3 kg (95 lb 6.4 oz) 02/14/2024 2:32 PM CDT Height 154.9 cm (5' 1) 02/14/2024 2:32 PM CDT Body Mass Index 18.03 02/14/2024 2:32 PM CDT Plan of Treatment Health Maintenance Due Date Last Done Comments ASCVD Statin 1940 Annual Medicare Wellness Visit 2006 RSV Immunization or 60+ Years (1 - 1-dose 75+ series) 01/04/2016 DTaP, Tdap and Td Vaccines (1 - Tdap) 08/31/2018 08/30/2018, 08/30/2018 Diabetes: Retinopathy Eye Exam 05/23/2020 05/23/2018 Zoster Vaccines (3 of 3) 10/21/2020 021, 05/09/2013, 05/09/2013 COVID-19 Vaccine ( season) 2023 03/01/2021, 07/26/2020, 07/26/2020, Additional history exists PHQ-2 ([facility] [place]) 04/19/2024 10/06/2023 Hemoglobin A1C 11/14/2024 08/15/2024, 12/18, 06/18/2023, Additional history exists Kidney Health Evaluation 08/15/2025 08/15/2024 Lipid Panel 08/15/2025 08/15/2024, 02/19, 02/10/2023, Additional history exists Pneumococcal Vaccine: 50+ Years Completed 02/19/2020, 04/25/2018, 11/24/2013, Additional history exists Dexa Scan (General) Completed 09/11/2021, 9 Meningococcal B Vaccine Aged Out No l onger eligible based on patient's age to complete this topic Meningococcal Vaccine Aged Out No wilton dalia eligible based on patient's age to complete this topic RSV Immunizations Under 20 Months Aged Out No longer eligible based on patient's age to complete this topic Goals Goal Patient Goal Type Associated Problems Recent Progress Patient-Stated? Author Family - family caregiver with be involved in care transitions and discharge planning Lifestyle No Socorro Holder, [employer] Implanted Type Area Seismic Prospecting Observer Helper Device Identifier Shelf Expiration Date Model / Serial / Lot Stem Femoral Collar Avenir Complete 3 Standard Hip Sterile Latex Free - [id number] Implanted:Qty: 1 on 05/21/2023 by Edward Rubio MD at [facility] Hip Components Right: Hip [employer] 12/19/2027 [id number] / / Shell Marlen Bipolar 42mm Od - [id number] Implanted:Qty: 1 on 05/21/2023 by Edward Rubio MD at [facility] Hip Components Right: Hip [employer] 01/28/2032 [id number] / / Liner Marlen Bipolar Hip 22 Id 42/43mm - [id number] Implanted:Qty: 1 on 05/21/2023 by Edward Rubio MD at [facility] Hip Components Right: Hip [employer] 10/16/2026 [id number] / / 3-Hole Distal Medial Extended Plate Implanted:Qty: 1 on 02/27/2022 by Jet Ram DO at [facility] Right: Arm Description:ITEM # [id number] 3.5 X 10mm L Screw Implanted:Qty: 1 on 02/27/2022 by Jet Ram DO at [facility] Right: Arm Description:ITEM # [id number] 3.5 X 18mm L Screw Implanted:Qty: 1 on 02/27/2022 by Jet Ram DO at [facility] Right: Arm Description:ITEM # [id number] 3.5 X 24mm Nl Screw Implanted:Qty: 2 on 02/27/2022 by Jet Ram DO at [facility] Right: Arm Description:ITEM # [id number] 3.5 X 22mm Nl Screw Implanted:Qty: 1 on 02/27/2022 by Jet aRm DO at [facility] Right: Arm Description:ITEM # [id number] 3.5 X 34mm L Screw Implanted:Qty: 1 on 02/27/2022 by Jet Ram DO at [facility] Arm Description:ITEM # [id number] 3.5 X 14mm L Screw Implanted:Qty: 2 on 02/27/2022 by Jet Ram DO at [facility] Right: Arm Description:ITEM # [id number] 3.5 X 36mm L Screw Implanted:Qty: 1 on 02/27/2022 by Jet Ram DO at [facility] Right: Arm Description:ITEM # [id number] Right 3-Hole Olecranon Plate Implanted:Qty: 1 on 02/27/2022 by Jet Ram DO at [facility] Right: Arm Description:ITEM # [id number] 3.5 X 20mm Nl Screw Implanted:Qty: 1 on 02/27/2022 by Jet Ram DO at [facility] Right: Arm Description:ITEM # [id number] 3.5 X 42mm L Screw Implanted:Qty: 1 on 02/27/2022 by Jet Ram DO at [facility] Right: Arm Description:ITEM # [id number] Femoral Head Implanted:Qty: 1 on 05/21/2023 by Edward Rubio MD at [facility] Right: Hip [employer] 05/13/2031 [id number] / / Procedures Procedure Name Priority Date/Time Associated Diagnosis Comments ALBUMIN URINE RANDOM W/CREATININE Routine 08/15/2024 8:30 AM CDT Vitamin B12 deficiency (non anemic) Hypothyroidism, adult Mixed hyperlipidemia Encounter for long-term (current) use of insulin ([facility]) Anemia, unspecified VITAMIN B-12 Routine 08/15/2024 8:09 AM CDT Vitamin B12 deficiency (non anemic) Hypothyroidism, adult Mixed hyperlipidemia Encounter for long-term (current) use of insulin ([facility]) Anemia, unspecified THYROID STIM HORMONE TSH Routine 08/15/2024 8:09 AM CDT Vitamin B12 deficiency (non anemic) Hypothyroidism, adult Mixed hyperlipidemia Encounter for long-term (current) use of insulin ([facility]) Anemia, unspecified LIPID PANEL Routine 08/15/2024 8:09 AM CDT Vitamin B12 deficiency (non anemic) Hypothyroidism, adult Mixed hyperlipidemia Encounter for long-term (current) use of insulin ([facility]) Anemia, unspecified IRON SAT PANEL (IRON,IBC,%SAT) Routine 08/15/2024 8:09 AM CDT Vitamin B12 deficiency (non anemic) Hypothyroidism, adult Mixed hyperlipidemia Encounter for long-term (current) use of insulin ([facility]) Anemia, unspecified HEMOGLOBIN, GLYCOSYLATED Routine 08/15/2024 8:09 AM CDT Vitamin B12 deficiency (non anemic) Hypothyroidism, adult Mixed hyperlipidemia Encounter for long-term (current) use of insulin ([facility]) Anemia, unspecified THYROXINE, FREE (FT4) Routine 08/15/2024 8:09 AM CDT Vitamin B12 deficiency (non anemic) Hypothyroidism, adult Mixed hyperlipidemia Encounter for long-term (current) use of insulin ([facility]) Anemia, unspecified FERRITIN Routine 08/15/2024 8:09 AM CDT Vitamin B12 deficiency (non anemic) Hypothyroidism, adult Mixed hyperlipidemia Encounter for long-term (current) use of insulin ([facility]) Anemia, unspecified COMPREHENSIVE METABOLIC PANEL Routine 08/15/2024 8:09 AM CDT Vitamin B12 deficiency (non anemic) Hypothyroidism, adult Mixed hyperlipidemia Encounter for long-term (current) use of insulin ([facility]) Anemia, unspecified CBC W/DIFF AUTOMATED Routine 08/15/2024 8:09 AM CDT Vitamin B12 deficiency (non anemic) Hypothyroidism, adult Mixed hyperlipidemia Encounter for long-term (current) use of insulin ([facility]) Anemia, unspecified BONE DENSITY/DEXA Routine 09/11/2021 3:2 0 PM CDT Age-related osteoporosis without current pathological fracture DILATED EYE EXAM (SCAN) Routine 05/23/2018 from Last 3 Months or Most Recently Relevant to Health Maintenance Results * MICROALBUMIN CREATININE RATIO (MICROALBUMIN/ALBUMIN) (08/15/2024 8:30 AM CDT) CREATININE (U) 28.3 28 - 217 MG/DL 08/15/2024 9:10 AM CDT [facility] MICROALBUMIN (U) 0.1 <2.0 mg/dL 08/16/19 9:10 AM CDT [facility] ALBUMIN/CREAT RATIO 3.5 <30.0 MG/G 08/15/2024 9:10 AM CDT [facility] URINE SPECIMEN / Unknown 08/15/2024 8:30 AM CDT Kamila KO URINE ORDERABLES Final Result Performing Organization Address [facility]/ZIP Co de Phone Number [facility] [address] [place] [address], [place] [phone] * (ABNORMAL) HEMOGLOBIN, GLYCOSYLATED (08/15/2024 8:09 AM CDT) HGB A1C 10.6(H) <5.7 % 08/16/2024 3:15 PM CDT [facility] Comment: INCREASED RISK OF DIABETES <5.7% NON-DIABETES 5.7-6.4% INCREASED RISK FOR FUTURE DIABETES > OR = 6.5 CONSISTENT WITH DIABETES STANDARDS OF MEDICAL CARE IN DIABETES-2010 DIABETES CARE, 33(SUPP 1): S1-S61,2009 ESTIMATED AVG GLUCOSE 258 mg/dL 08/16/2024 3:15 PM CDT [facility] 08/15/2024 8:09 AM CDT us Kamila KO LABORATORY Final Result Performing Organization Address City/[facility]/ZIP Co de Phone Number [facility] [address] [place] [address], [place] [phone] * IRON SAT PANEL (IRON,IBC,%SAT) (08/15/2024 8:09 AM CDT) IRON 122 50 - 170 MCG/DL 08/15/2024 9:13 AM CDT [facility] IRON BINDING CAPACITY 296 250 - 450 MCG/DL 08/15/2024 9:13 AM CDT [facility] IRON SATURATION 41 20 - 55 % 9:13 AM CDT [facility] 08/15/2024 8:09 AM CDT Kamila KO LABORATORY Final Result Performing Organization Address City/[facility]/ZIP Co de Phone Number [facility] [address] [place] [address], [place] [phone] * VITAMIN B-12 (08/15/2024 8:09 AM CDT) VITAMIN B12 S/P/B 406 193 - 986 PG/ML 08/15/2024 9:39 AM CDT [facility] 08/15/2024 8:09 AM CDT Kamila KO LABORATORY Final Result Performing Organization Address [facility] Co de Phone Number [facility] [address] [place] [address], [place] [phone] * (ABNORMAL) COMPREHENSIVE METABOLIC PANEL (08/15/2024 8:09 AM CDT) GLUCOSE 86 70 - 99 MG/DL 08/15/2024 9:28 AM CDT [facility] BUN 16 7 - 18 MG/DL 08/15/2024 9:28 AM CDT [facility] CREATININE S/P/B 0.77 0.55 - 1.02 MG/DL 08/15/2024 9:28 AM CDT [facility] SODIUM S/P/B 140 136 - 145 MMOL/L 08/15/2024 9:28 AM CDT [facility] POTASSIUM S/P/B 4.3 3.5 - 5.1 MMOL/L 08/15/2024 9:28 AM [facility] CHLORIDE S/P/B 101 100 - 108 MMOL/L 08/15/2024 9:28 AM [facility] CO2 32.3(H) 21 - 32 MMOL/L 08/15/2024 9:28 AM [facility] CALCIUM S/P/B 9.4 8.5 - 10.1 MG/DL 08/15/2024 9:28 AM [facility] BILIRUBIN TOTAL S/P/B 0.5 0.2 - 1.2 MG/DL 08/15/2024 9:28 AM [facility] TOTAL PROTEIN S/P/B 7.4 6.4 - 8.2 G/DL 08/15/2024 9:28 AM [facility] ALBUMIN S/P/B 3.3(L) 3.4 - 5.0 G/DL 08/15/2024 9:28 AM [facility] AST 36 15 - 37 U/L 08/15/2024 9:28 AM [facility] ALT 34 14 - 55 U/L 08/15/2024 9:28 AM [facility] ALKALINE PHOSPHATASE S/P/B 96 50 - 136 U/L 08/15/2024 9:28 AM [facility] ANION GAP 6.7 5 - 15 MMOL/L 08/15/2024 9:28 AM [facility] BUN CREATININE RATIO 20.8 6 - 26 08/15/2024 9:28 AM [facility] A/G RATIO 0.8(L) 1.0 - 2.0 RATIO 08/15/2024 9:28 AM CDT [facility] GFR ESTIMATE 76(L) >90 ML/MIN/1.7 3 M2 08/15/2024 9:28 AM T [facility] Comment: NOTE: eGFR is not calculated for patients <18 years of age. This is an estimated GFR calculation using the new CKD EPI creatinine equation without race and so does not require a correction factor for race. This estimated GFR should not be used for calculating drug doses. 08/15/2024 8:09 AM CDT us Kamila KO LABORATORY Final Result [facility] [address] [place] [address], * LIPID PANEL (08/15/2024 8:09 AM CDT) CHOLESTEROL 151 <200.0 MG/DL 08/15/2024 9:28 AM T [facility] TRIGLYCERIDES 64 <150 MG/DL 08/15/2024 9:28 AM T [facility] HDL 79 >40.0 MG/DL 08/15/2024 9:28 AM T [facility] LDL (CALCULATED) 59 <100 MG/DL 08/16/19 9:28 AM T [facility] NON HDL CHOLESTEROL 72 <130 MG/DL 08/15 9:28 AM T [facility] CHOL/HDL RATIO 1.9 0.0 - 4.5 08/15/2024 9:28 AM T [facility] VLDL CALCULATION 13 5 - 55 MG/DL 08/15/2024 9:28 AM T [facility] LIPID INTERPRETATION 08/15/2024 9:28 AM T [facility] Comment: [facility] REPORT RECOMMENDATIONS: ADULT CHILD LOW RISK: CHOLESTEROL <200 <170 TRIGLYCERIDE <150 --- HDL >=60 --- LDL <100 <110 BORDERLINE: CHOLESTEROL 200-239 170-199 TRIGLYCERIDE 150-199 --- HDL 40-59 --- LDL 100-159 110-129 HIGH RISK: CHOLESTEROL >=240 >=200 TRIGLYCERIDE >=200 --- HDL <40 --- LDL >=160 >=130 08/15/2024 8:09 AM CDT us Kamila KO [facility] Final Result [facility] [address] [place] [address], * (ABNORMAL) CBC W/DIFF AUTOMATED (08/15/2024 8:09 AM CDT) WBC 10.14 4.4 - 11.0 x10'3/uL 08/15/2024 8:55 AM CDT [facility] RBC 4.86 4.50 - 5.10 x10'6/uL 08/15/2024 8:55 AM CDT [facility] HGB 14.1 12.3 - 15.3 G/DL 08/15/2024 8:55 AM CDT [facility] HCT 43.5 35.9 - 44.6 % 08/15/2024 8:55 AM CDT [facility] MCV 89.5 80.0 - 96.0 FL 08/15/2024 8:55 AM CDT [facility] MCH 29.0 25.3 - 30.9 PG 08/15/2024 8:55 AM CDT [facility] MCHC 32.4 31.0 - 34.1 G/DL 08/15/2024 8:55 AM CDT [facility] RDW 13.3 12.4 - 15.1 % 08/15/2024 8:55 AM CDT [facility] PLT 209 151 - 353 x10'3/uL 08/15/2024 8:55 AM CDT [facility] MPV 11.6 9.6 - 12.0 FL 08/15/2024 8:55 AM CDT [facility] RBC MORPHOLOGY NORMAL 08/15/2024 8:55 AM CDT [facility] PLT MORPH. NORMAL 08/15/2024 8:55 AM T [facility] WBC MORPHOLOGY NORMAL 08/15/2024 8:55 AM T [facility] LYMPHOCYTES % 25.5 15.8 - 45.0 % 08/15/2024 8:55 AM T [facility] NEUTROPHILS % 60.8 42.1 - 71.9 % 08/15/2024 8:55 AM CDT [facility] MONOCYTES % 8.2 5.7 - 12.5 % 08/15/2024 8:55 AM T [facility] EOSINOPHILS 4.4 0.0 - 5.6 % 08/15/2024 8:55 AM T [facility] BASOPHILS 0.5 0.0 - 1.3 % 08/15/2024 8:55 AM T [facility] ABS. NEUTROPHILS 6.16(H) 1.40 - 6.00 x10'3/uL 08/15/2024 8:55 AM T [facility] IMMATURE GRANS % 0.6(H) 0.0 - 0.5 % 08/15/2024 8:55 AM [facility] ABS. LYMPHOCYTES 2.59 0.80 - 4.70 x10'3/uL 08/15/2024 8:55 AM [facility] 08/15/2024 8:09 AM CDT Kamila Prieto [facility] Final Result Performing Organization Address City/[facility]/ZIP Co de Phone Number [facility] [address] [place] [address], [place] [phone] * THYROXINE, FREE (FT4) (08/15/2024 8:09 AM CDT) FREE T4 1.38 0.76 - 1.46 NG/DL 08/15/2024 9:28 AM CDT [facility] 08/15/2024 8:09 AM CDT Kamila Prieto [facility] Final Result Performing Organization Address [facility] Co de Phone Number [facility] [address] [place] [address], [place] [phone] * THYROID STIM HORMONE TSH (08/15/2024 8:09 AM CDT) TSH 1.779 0.358 - 3.74 uIU/ML 08/15/2024 9:28 AM CDT [facility] Comment: HIGH DOSES OF BIOTIN MAY INTERFERE WITH THIS TEST RESULT. CORRELATION TO CLINICAL HISTORY AND PRESENTATION RECOMMENDED. 08/15/2024 8:09 AM CDT us Kamila Prieto [facility] Final Result Performing Organization Address [facility]/ZIP Co de Phone Number [facility] [address] [place] [address], [place] [phone] * FERRITIN (08/15/2024 8:09 AM CDT) FERRITIN 204.0 8.0 - 388.0 NG/ML 08/15/2024 9:28 AM CDT [facility] 08/15/2024 8:09 AM CDT us Kamila Prieto [facility] Final Result [facility] [address] [place] [address], [place] [phone] * BONE DENSITY/DEXA (09/11/2021 3:20 PM CDT) Anatomical Region Laterality Modality Bone Bone Density 09/11/2021 3:21 PM CDT Impressions 09/11/2021 3:26 PM CDT IMPRESSION: Bone mineralization in the mildly osteoporotic range at lumbar spine and moderately osteoporotic range at left femoral neck with interval bone loss since 05/12/2018. Consider institution of therapy for osteoporosis and follow-up imaging to monitor response to therapy. Ordered By: PAUL LOPEZ Interpreted By: Shiva Murillo, 09/11/2021 3:21 PM Narrative 09/11/2021 3:26 PM CDT DEXA BONE DENSITOMETRY SCAN 09/11/2021 HISTORY: 81-year-old postmenopausal white female with osteoporosis noted at 05/12/2018 examination. Patient reports daily consumption of dairy products. She is not on calcium supplementation. FINDINGS: Dual-energy x-ray absorptiometry of lumbar spine and left femoral neck obtained. At L2-L4: BMD BMD 0.780 gm/sq cm, T score -2.7, mildly osteoporotic range, moderate present fracture risk. At left femoral neck: BMD 0.506 gm/sq cm, T score -3.1, moderately osteoporotic range, moderately high present fracture risk. COMPARISON: 05/12/2018 At L2-L4: BMD 0.808 gm/sq cm, T score -2.5, mildly osteoporotic range, moderate present fracture risk. At left femoral neck: BMD 0.561 gm/sq cm, T score -2.6, mildly osteoporotic range, moderate present fracture risk. Procedure Note Shiva Murillo MD - 09/11/2021 DEXA BONE DENSITOMETRY SCAN 09/11/2021 HISTORY: 81-year-old postmenopausal white female with osteoporosis notedat 05/12/2018 examination. Patient reports daily consumption of dairyproducts. She is not on calcium supplementation. FINDINGS: Dual-energy x-ray absorptiometry of lumbar spine and leftfemoral neck obtained. At L2-L4: BMD BMD 0.780 gm/sq cm, T score -2.7, mildly osteoporoticrange, moderate present fracture risk. At left femoral neck: BMD 0.506 gm/sq cm, T score -3.1, moderatelyosteoporotic range, moderately high present fracture risk. COMPARISON: 05/12/2018 At L2-L4: BMD 0.808 gm/sq cm, T score -2.5, mildly osteoporotic range,moderate present fracture risk. At left femoral neck: BMD 0.561 gm/sq cm, T score -2.6, mildlyosteoporotic range, moderate present fracture risk. IMPRESSION: Bone mineralization in the mildly osteoporotic range at lumbarspine and moderately osteoporotic range at left femoral neck with intervalbone loss since 05/12/2018. Consider institution of therapy for osteoporosis and follow-up imaging tomonitor response to therapy. 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 Advance Directives and Living Will 06/16/2023 12:21 PM 11/07/2020 POA FOR HC * Full Code (Latest Code Status on File) Date Activated Date Inactivated Comments 02/08/2024 11:50 AM * Full Code Date Activated Date Inactivated Comments 01/02/2024 5:43 PM 01/05/2024 12:18 PM * Full Code Date Activated Date Inactivated Comments 06/05/2023 10:53 AM 09/29/2023 4:18 PM * Full Code Date Activated Date Inactivated Comments 05/26/2023 8:17 PM 06/03/2023 4:01 PM * Full Code Date Activated Date Inactivated Comments 05/21/2023 1:13 AM 05/26/2023 7:44 PM Care Teams Alcoholic Counselor Relationship Specialty Start Date End Date Nathan Diaz MD [address] [place] [address] [address] [place] [address] PCP - General FAMILY PRACTICE 07/06/22
--- OUTSIDE RECORDS SUMMARY | 2024-11-11 13:04 | XMS_ITS | Data Portability ---
Author Organization [facility] [address] [place] [address] Care Team Providers Care Support Team Member Name Role Phone LOPEZPAUL MAI Primary Care Provider Assessment No assessment recorded. Plan of Treatment Reminders Order Date Submit Date Provider Last Modified By Organization Details Last Modified Time Details Appointments None recorded. Lab None recorded. 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 Surgeries None recorded. Imaging None recorded. Medication Orders None recorded. Patient TargetsNo targets recorded. Patient Instructions Encounter Date Encounter Id Patient Instructions Last Modified By Organization Details Last Modified Time 02/18/2022 [id number] I discussed with Tessy and her son that the fractures she has sustained could possibly need surgical intervention. To get a better picture of the joint involvement we need to get a CT scan so we can see how involved the elbow joint is. Once we have this, Dr. Ram will determine her treatment plan moving forward. I told her to keep the splint in place and take the norco as needed. I want her to avoid anti inflammatory meds while her fracture is healing. She was instructed to call with any questions or concerns. She voiced understanding and agreed with this plan of care. Patient was seen by Felix Rea NP, and the diagnoses, problems and treatment plan for the patient has been reviewed and approved by me, Dr. Jet Ram. Not available 02/18/2022 21:14:47 02/25/2022 [id number] I discussed with Paul and her son that Dr. Ram reviewed the CT scan. He said that the way that the fractures of the distal humerus are currently, if they were to heal that way he does not think she will be happy with the outcome. Since this is her dominant arm, his suggestion is for her to have surgery to reduce the bones and place some hardware to keep everything in proper alignment. She is now complaining of ulnar nerve compression symptoms, which is caused by the fractures and makes surgery sound like the best option for her at this time. After discussing the risks and benefits she has decided to proceed with his. I told her we will need to get approval from her primary care to have the surgery, so her son was going to call and get that set up as soon as they leave the office today. We are going to plan on fixing her this Wednesday in [place]. I will follow up with her two weeks after her procedure in the office. They were instructed to call with any questions or concerns. They voiced understanding and agreed with this plan of care. Surgery Counseling We discussed various methods of treatment for this diagnosis, including both non-surgical and surgical treatment options. The procedure was discussed in detail, including rationale for proceeding with the procedure, specifics of the technical aspects of the procedure, and the expected postoperative course including the possible need for activity modification, therapy, and duration of expected recovery. Risks to surgery include: pain, numbing, scar, infection, loss of motion, nerve or vascular injury, stiffness, blood loss, reoccurrence, re-operation, non-union or mal-union, fracture, dislocation, unequal leg lengths, allergic reaction to medicine, heart attack, stroke or . Risks of allograft and blood transfusions include; infection, allergic reaction, disease transmission including hepatits or AIDS virus. Complications, including blood loss and potential need for transfusion, nerve injury, infection, success rates (expected outcomes) of the procedure, and risk of from anesthesia were discussed. Patient fully understands that there are no guarantees with surgical intervention. The patient voiced understanding of the procedure and risks, and the decision for surgery was made today. Patient was seen by Felix Rea NP, and the diagnoses, problems and treatment plan for the patient has been reviewed and approved by me, Dr. Jet Ram. [email or web address] Not available 02/25/2022 14:08:38 03/11/2022 [id number] I discussed with Tessy and her son that she is doing well following her surgery. We went over incision care today, including not to soak the insicion in a hot tub, bath tub, or swimming pool for at least two more weeks, and do not put any creams, lotions, ointments or oils on the incision for two more weeks. I want her to keep working on the ROM exercises at home and I am going to send an order to [facility] to start some formal PT, working on ROM exercises. She can ice, elevate and take pain medications as needed. I want to see her back in about 4 weeks with another set of images. She was instructed to call with any questions or concerns. She voiced understanding and agreed with this plan of care. Patient was seen by Felix Rea NP, and the diagnoses, problems and treatment plan for the patient has been reviewed and approved by me, Dr. Jet Ram. [email or web address] Not available 03/11/2022 12:06:50 04/08/2022 [id number] I discussed with Tessy and her son that she is doing well following her surgery. At this time we can add some strengthening to her therapy sessions. I want her to continue doing the exercises on her own at home. She said she just got an exercise ball so she is going to start working with that as well. I will follow up with her on a PRN basis. She was instructed to call with any questions or concerns. She voiced understanding and agreed with this plan of care. Patient was seen by Felix Rea NP, and the diagnoses, problems and treatment plan for the patient has been reviewed and approved by me, Dr. Jet Ram. 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 [place] [id number] [facility], [place], [address], 02/24/2022 12:53:08 02/27/20 22 02/26/2022 elect luciano plunkettgr am, routi ne ECG, 12 leads min No observ ation record ed. [address], [place], [address], 02/27/2022 12:09:48 02/28/20 22 02/27/2022 imagi ng inter preta tion No observ ation record ed. [address], [place], [address], 02/28/2022 11:29:26 03/11/20 22 03/11/2022 XR, humer us No observ ation record ed. [facility] [address], [place], [address], 03/15/2022 11:22:36 04/08/20 22 04/08/2022 XR, humer us No observ ation record ed. [address] [facility] [address] [facility], [place], [address], 04/08/2022 16:54:09 Result Notes None recorded. 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 FELIX REAMERLE [address], [place], [address], [place] [facility] 14:03:42 Pain in right hand 4275941456584 09 Active 2021 FELIX BENNYMERLE [address], [place], [address], [place] [facility] 14:04:05 Closed fracture of olecranon process of right ulna 0395703245080 9102 Active 2021 FELIX REAMERLE [address], [place], [address], [place] [facility] 11:54:21 Postoperati ve visit 404711449 Active 2021 FELIX REAMERLE [address], [place], [address], [place] [facility] 11:54:32 Notes:Some problems listed i n Document: #[id number] could not be added to this patient's chart. Please review this document and add these problems to the patient's chart manually as needed. Problem Notes None recorded. Procedures Surgical History Date Name Laterality Status Provider Name and Address Organization Details Recorded Time Hysterectomy completed alison hodges [place] [facility] 02/17/2022 14:33:28 Imaging Results None recorded. Procedure Notes None recorded. Medical Equipment None Reported. Allergies Allergen ID Allergen Name Allergen Category Reaction Reaction Severity Criticality Documentation Date Start Date Code Code System Note Provider Name and Address Organization Details Recorded Time 1185 Ceclor medicatio n Not available Not available Not available 02/17/202211270 5 RxNorm alison mccauley [place] [facility] 14:35:07 Medications Name Sig Start Date Stop Date Status Note LastModified by Organization Details LastModified Time metformin 500 mg tablet TAKE 1 TABLET BY MOUTH EVERY MORNING WITH BREAKFAS T AND TAKE 2 TABLETS WITH SUPPER active Not Available Not Available No t Available azithromyc in 250 mg tablet TAKE 2 TABLETS BY MOUTH TODAY, THEN TAKE 1 TABLET DAILY FOR 4 DAYS 04/08 completed not taking Not Available Not Available Not Available pravastati n 40 mg tablet TAKE 1 TABLET BY MOUTH EVERYDAY AT BEDTIME active Not Available Not Available No t Available hydrocodon e 5 mg-acetami nophen 325 mg tablet 04/08 completed Not Available Not Available Not Available phenazopyr idine 200 mg tablet TAKE 1 TABLET BY MOUTH THREE TIMES A DAY NEEDED FOR PAIN active Not Available Not Available No t Available pioglitazo ne 45 mg tablet TAKE 1 TABLET BY MOUTH EVERY DAY 04/08 completed Not Available Not Available Not Available sulfametho xazole 800 mg-trimeth oprim 160 mg tablet TAKE 1 TABLET BY MOUTH TWICE A DAY FOR 7 DAYS 04/08 completed Not Available Not Available Not Available levothyrox ine 75 mcg tablet TAKE 1 TABLET BY MOUTH EVERY DAY active Not Available Not Available No t Available oxycodone- acetaminop hen 5 mg-325 mg tablet TAKE 1-2 TABLETS BY MOUTH EVERY 4 (FOUR) HOURS NEEDED FOR PAIN 04/08 completed Not Available Not Available Not Available lisinopril 2.5 mg tablet TAKE 1 TABLET BY MOUTH EVERY DAY active Not Available Not Available No t Available Microlet Lancet USE TO CHECK BLOOD SUGAR TWICE DAILY active Not Available Not Available No t Available Laniris Solostar U-100 Insulin 100 unit/mL (3 mL) subcutaneo us pen INJECT 20 UNITS INTO THE SKIN NIGHTLY AT BEDTIME. active Not Available Not Available No t Available Contour Next Test Strips USE TO TEST BLOOD SUGARS TWICE DAILY active Not Available Not Available No t Available Contour Next Meter TEST TWICE DAILY active Not Available Not Available No t Available Vitals Date Recorded Body height Body mass index (BMI) Body weight Body temperature Heart rate Systolic And Diastolic Provider Name and Address Organization Details Last Updated DateTime 2 154.94 cm 20.2 kg/m2 76902.3 8 g 97.2 [degF] 76 /min 133/46 mm[Hg] Talia Wong [place] [facility] 16:14:22 Date Recorded Body height Body mass index (BMI) Body weight Heart rate Systolic And Diastolic Provider Name and Address Organization Details Last Updated DateTime 02/25/2022 152.4 cm 21.7 kg/m2 82948.75 g 84 /min 132/68 mm[Hg] Margot Diaz [place] [facility] 02/25/2022 11:16:21 Date Recorded Body height Body mass index (BMI) Body weight Heart rate Systolic And Diastolic Provider Name and Address Organization Details Last Updated DateTime 03/11/2022 152.4 cm 21.7 kg/m2 93166.47 g 67 /min 122/68 mm[Hg] Margot Diaz [place] [facility] 03/11/2022 10:27:44 Date Recorded Body height Body mass index (BMI) Body weight Body temperature Heart rate Systolic And Diastolic Provider Name and Address Organization Details Last Updated DateTime 154.94 cm 20.8 kg/m2 12676.1 6 g 97.6 [degF] 81 /min 140/69 mm[Hg] Talia Wong [place] [facility] 10:57:48 Social History Question Answer Notes LastModified by Organizat ion Details LastModified Time Tobacco Smoking Status Never Smoker alison mccauley [place] [facility] 02/17/2022 14:32:44 Do You Have An Advance Directive? No [email or web address] Information n ot available 02/17/2022 Are You Blind Or Do You Have Difficulty Seeing? No [email or web address] Information n ot available 02/17/2022 Is Blood Transfusion Acceptable In An Emergency? Yes [email or web address] Information not available 02/17/2022 What Is Your Level Of Caffeine Consumption? Heavy [email or web address] Information not available 02/17/2022 In The 14 Days Before Symptom Onset, Have You Had Close Contact With A Laboratory-confirm ed COVID-19 While That Case Was Ill? No Information n ot available 02/17/2022 In The 14 Days Before Symptom Onset, Have You Had Close Contact With A Person Who Is Under Investigation For COVID-19 While That Person Was Ill? No [email or web address] Information not available 02/17/2022 Have You Been To An Area Known To Be High Risk For COVID-19? No Information not available 02/17/2022 Are You Deaf Or Do You Have Serious Difficulty Hearing? No Information not available 02/17/2022 What Type Of Diet Are You Following? REGULAR Information n ot available 02/17/2022 Have You Processed Blood Or Body Fluids From An Ebola Virus Disease Patient Without Appropriate PPE? No [email or web address] Information not available 02/17/2022 Do You Reside In Or Have You Traveled To An Area Where Ebola Virus Transmission Is Active? No [email or web address] Information not available 02/17/2022 What Is The Highest Grade Or Level Of School You Have Completed Or The Highest Degree You Have Received? [id number] Information not available 02/17/2022 Are There Any Guns Present In Your Home? No [email or web address] Information not available 02/17/2022 Which Of Your Hands Is Dominant? Right [email or web address] Information n ot available 02/17/2022 What Is Your Relationship Status? Information not available 02/17/2022 Do You Use Your Seat Belt Or Car Seat Routinely? Yes [email or web address] Information not available 02/17/2022 Are You Sexually Active? No [email or web address] Information not available 02/17/2022 Do You Have Smoke And Carbon Monoxide Detectors In Your Home? Yes [email or web address] Information not available 02/17/2022 Do You Use Sunscreen Routinely? Yes [email or web address] Information not available 02/17/2022 Do You Have Difficulty Walking Or Climbing Stairs? No [email or web address] Information not available 02/17/2022 Sex: Female Functional Status Question Answer Note LastModified by Organizat ion Details LastModified Time Do you use any illicit or recreational drugs? No Information not available 02/17/2022 Do you or have you ever used any other forms of tobacco or nicotine? No [email or web address] Information not available 02/17/2022 What is your level of alcohol consumption? None [email or web address] Information not available 02/17/2022 Are you currently employed? No [email or web address] Information not available 02/17/2022 Are you able to walk? YESWOREST [email or web address] Information not available 02/17/2022 Do you have difficulty doing errands alone? No [email or web address] Information not available 02/17/2022 Are you able to care for yourself independently? Yes [email or web address] Information not available 02/17/2022 Do you have difficulty dressing, bathing, grooming, or toileting? No [email or web address] Information not available 02/17/2022 What is your exercise level? None Information not available 02/17/2022 Mental Status Question Answer Note LastModified by Organizat ion Details LastModified Time Do you feel stressed (tense, restless, nervous, or anxious, or unable to sleep at night)? [id number] Information not available 02/17/2022 Do you have difficulty concentrating, remembering or making decisions? No Information no t available 02/17/2022 Family History Nothing Reported. Medical History Condition Response Coronary Artery Disease N Anxiety/Depression N Gout N Blood Transfusion N Hernia N COPD N Pacemaker N Orthotics N Arthritis N Blood Clot N Cancer N Stroke N High Cholesterol N Liver Disease N Rheumatoid Arthritis N Kidney Disease N Heart Problems N Migraines N Thyroid Problems N Anemia N Ulcers N Heart Attack (ME) N Diabetes Y Bleeding Disorder N Seizures/Epilepsy N Tuberculosis N AIDS/HIV N Asthma N Peripheral Vascular Disease N Hepatitis N Pulmonary Embolism N Hypertension N Osteoporosis N Gynecological HistoryNo gynecological history recorded. Obstetrics History GPAL:G 0 P 0 0 0 0 Past Encounters Encounter ID Performer Location Encounter Start Date Encounter Closed Date Diagnosis/Indication Diagnosis SNOMED-CT Code Diagnosis ICD10 Code Diagnosis Note [id number] Jet Ram DO [address] [address] 02/18/2022 15:33:33 02/18/2022 16:51:18 Fracture of distal end of humerus 883591160 S42.411A [id number] Jet Ram DO [place] [address] [place] [address] 02/25/2022 11:08:22 02/25/2022 12:00:07 Fracture of distal end of humerus 211619541 S42.461D Closed sup racondylar fracture of humerus 55178624 S42.411D Ulnar nerv e entrapment at elbow 620233884 G56.21 Pain in right hand 36650 68187 69753 M79.641 [id number] Jet Ram [place] [address] [place] [address] 03/11/2022 10:23:23 03/11/2022 10:47:07 Closed supracondylar fracture of humerus 22956954 S42.411D Closed fra cture of olecranon process of right ulna 6383522432 1496058 S52.021D Postoperative visit 1836 42662 Z09 [id number] DO Abimael [address]jo[address] [address] 04/08/2022 10:27:18 04/08/2022 11:18:58 Closed fracture of olecranon process of right ulna 4685080442 9583696 S52.021D Health Concerns Section Related Observation LastModified by Organization Detai ls LastModified Time None Recorded Concern Status LastModified by Organization Details LastModified Time None Recorded Advance Directives Directive N: Payers Insurance Date Sequence Insurance Name Policy Number Policy Fontana Covered Member ID Fontana Member ID Guarantor Name 06/26/2022 1 [facility] (MEDICARE REPLACEMENT HMO) [id number] Tessy Priest Pinkyjaswinder [id number] Tessy Priest Pinkyjaswinder Notes Date Note Type Note Provider Name and Address Organization Details Recorded Time 02/19/20 22 text/htm l Elbow/ForearmReported by PatientHPIFor associated symptoms, patient reportsweaknessandswellingbut reportsno numbnessandno tingling. For hand dominance, patient reportsright. For location, patient reportsright. For severity, patient reportsno pain. For timing, patient reportsdate of onset: (02/17/2022). For duration, patient reportsacute. For context, patient reportsfall. For aggravating factors, patient reportslifting,carrying,rom, andweightbearing. For alleviating factors, patient reportsrest,limited weight bearing, andsling(splint). For previous surgery, patient reportsnone. For prior imaging, patient reportsx ray. For working, patient reportsno. Fracture/Post-Op F/UReported by PatientROS as noted in the HPI Tessy presents to the clinic today following a trip to the [place] [facility] on 02/17/2022 after she fell at home when she tripped on a throw rug. She said she landed on her right elbow and hit her face. She says her pain is minimal at rest. She got a prescription for some norco but she has not taken any. She presents in an orthoglass splint and sling, which makes it difficult to perform daily tasks as she is right hand dominant. The ROS is reviewed with the patient and a copy is located in the chart. Jet Ram, [address] [place], [address], [place] [facility] 02/18/2022 21:38:45 02/26/20 22 text/htm l Elbow/ForearmReported by PatientHPIFor associated symptoms, patient reportsweaknessandhand painbut reportsno numbnessandno tingling. For hand dominance, patient reportsright. For location, patient reportsright. For quality, patient reportsburning. For severity, patient reportsmoderate. For timing, patient reportsdate of onset: (02/17/2022). For duration, patient reportsacute. For context, patient reportsfall. For aggravating factors, patient reportslifting,carrying,rom, andweightbearing. For alleviating factors, patient reportsrest,limited weight bearing, andsling(splint). For previous surgery, patient reportsnone. For prior imaging, patient reportsx rayandct. For working, patient reportsno.ROS as noted in the HPI Tessy presents to the clinic today after having a CT scan of her right arm to see the extent of the fractures in her elbow. She presents today in her orthoglass splint and sling. She says that she has been having some electrical pains shooting from her elbow down to her [place] [address] [address], [place], [address], [place] [facility] 02/25/2022 14:13:32 03/11/20 22 text/htm l Elbow/ForearmReported by PatientHPIFor associated symptoms, patient reportsweaknessandswellingbut reportsno numbnessandno tingling. For hand dominance, patient reportsright. For location, patient reportsright. For quality, patient reportsaching. For severity, patient reportsimprovingandmild. For timing, patient reportsdate of onset: (02/17/2022). For duration, patient reportsacute. For context, patient reportsfall. For aggravating factors, patient reportslifting,carrying,rom, andweightbearing. For alleviating factors, patient reportsrest,limited weight bearing,previous surgery, andsling. For previous surgery, patient reportssurgical procedure: (orif distal humerus and olecranon)anddate: (02/27/2022). For prior imaging, patient reportsx rayandct. For working, patient reportsno.ROS as noted in the HPI Tessy presents to the clinic today with her son for a two week post op follow up after a right medial condyle humerus and olecranon ORIF on 02/27/2022. She says she is doing good today and her pain is minimal. She has been wearing her sling and has been working on the ROM exercises Dr. Ram showed her. The nerve-type pain she was experiencing at the last appointment has subsided. She has no complaints today. FELIX REA, INTERMEDIATE CARD TENDER [address] [place], [address], [place] [facility] 03/11/2022 12:07:25 04/08/20 22 text/htm l Elbow/ForearmReported by PatientHPIFor associated symptoms, patient reportsweaknessandswellingbut reportsno numbnessandno tingling. For hand dominance, patient reportsright. For location, patient reportsright. For quality, patient reportsaching. For severity, patient reportsimprovingandmild. For timing, patient reportsdate of onset: (02/17/2022). For duration, patient reportsacute. For context, patient reportsfall. For aggravating factors, patient reportslifting,carrying,rom, andweightbearing. For alleviating factors, patient reportsrest,limited weight bearing,pt/ot,previous surgery, andsling. For previous surgery, patient reportssurgical procedure: (orif distal humerus and olecranon)anddate: (02/27/2022). For prior imaging, patient reportsx rayandct. For previous pt, patient reportshelped significantly. For working, patient reportsno.ROS as noted in the HPI Tessy presents to the clinic today with her son for a six week post op follow up after a right medial condyle humerus and olecranon ORIF on 02/27/2022. She says she is doing good today and her pain is minimal. She has been going to physical therapy to work on ROM and she has also been working on exercises at home. Her only complaint today is that she has difficulty turning the veras to turn her car on due to weakness in her elbow and forearm. FELIX REA, INTERMEDIATE CARD TENDER [address] [place], [address], [place] [facility] 04/08/2022 14:41:51 OBGyn Episode No OBEpisode recorded.
--- OUTSIDE RECORDS SUMMARY | 2024-11-11 13:04 | XMS_ITS | Encounter Summary ---
Author Organization [facility] Address [facility] [place] [address] Care Team Providers Care Shuttle Fitting Supervisor Name Role Phone Nathan Diaz MD Primary Care Provider [phone] Encounter Details Date Type Department Care Team (Late st Contact Info) Description 01/11/2024 [place] Message [employer] Office [address] [place] [phone] [place], [facility] Provider Action Needed Social History Tobacco Use Types Packs/Day Years Used Date Smoking Tobacco: Never Smokeless Tobacco: Never Comments:na Alcohol Use Standard Drinks/Week Comments Yes 0 (1 standard drink = 0.6 oz pur e alcohol) very rarely. OASIS D0700: Social Isolation Answer Da te Recorded Frequency of experiencing loneliness or isolatio n Never 07/08/2023 OASIS A1250: Transportation Answer Date Recorded Lack of Transportation (Medical) No 07/08/2023 Lack of Transportation (Non-Medical) No 07/08/2023 Patient Unable or Declines to Respond No 07/08/2023 OASIS B1300: Health Literacy Answer Kenny e Recorded Frequency of needing help to read materials from doctor or pharmacy Never 07/08/2023 [facility] Utilities Answer Date Recorded In the past 12 months has th e [employer], gas, oil, or water company threatened to shut off services in your [...] Recorded Patient Health Questionnaire-2 Score 0 10/06/2023 [facility] - Occupational Stress [...] place to sleep or slept in a fdc (including now)? No 05/21/2023 Housing Stability Vital Sign Answer Kenny e Recorded In the last 12 months, was t here a time when you were not able to pay the mortgage or rent on time? No 01/02/2024 In the past 12 months, how m any times have you moved where you were living? 1 01/02/2024 At any time in the past 12 m [facility], were you homeless or living in a fdc (including now)? No 01/02/2024 Comments No Sex and Gender Information Value Date Recorded Sex Assigned at Not on file Legal Sex Female 6:32 PM CDT Gender Identity Not on file Sexual Orientation Not on file documented as of this encounter Functional Status * Are you deaf or do you have serious difficulty hearing Answer Date of Assessment Author Status Yes 01/02/2024 11:41 AM Jason Nuenz RN Active * Are you blind or do you have serious difficulty seeing, even when wearing glasses? Answer Date of Assessment Author Status No 01/02/2024 11:41 AM Jason Nunez RN Active * Do you have serious difficulty walking or climbing stairs? Answer Date of Assessment Author Status Yes 01/02/2024 11:41 AM Jason Nunez RN Active * Do you have difficulty dressing or bathing? Answer Date of Assessment Author Status Yes 01/02/2024 11:41 AM Jason Nunez RN Active * Because of a physical, mental, or emotional condition, do you have difficulty doing errands alone such as visiting a doctor's office or shopping? Answer Date of Assessment Author Status No 01/02/2024 11:41 AM Jason Nunez RN Active documented as of this encounter Mental Status * Because of a physical, mental, or emotional condition, do you have serious difficulty concentrating, remembering, or making decisions? Answer Entry Date Author Status No 01/02/2024 11:41 AM Jason Nunez RN Active documented in this encounter Plan of Treatment Not on file documented as of this encounter Goals Goal Patient Goal Type Associated Problems Recent Progress Patient-Stated? 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
== END ==
PROVIDERS: PCP Family Medicine; Visit Provider Family Medicine
DX: M54.6 Pain in thoracic spine (principal); M54.50 Low back pain, unspecified
CPT/HCPCS: 72072; 72110